=== PATIENT | male | born 1975 | race Caucasian/White ===

== ENCOUNTER 2017-08-21 17:04 | Emergency (ER) | payer OTHER ==
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
[2017-08-21] MEDS ORDERED: METHOCARBAMOL 500 MG TABLET PO STA (17:53)
[2017-08-21] MEDS ORDERED: IBUPROFEN 600 MG TABLET PO STA (17:53)
[2017-08-21] MEDS ORDERED: traMADol 50 MG TABLET PO STA (17:53)
--- NOTE | 2017-08-21 18:35 | CT Preliminary Report ---
Exam: CT LUMBAR SPINE W/O IMPRESSION: Minimal broad-based disk bulges at L4-L5 and L5-S1, without significant spinal or foramin al narrowing. [facility] SITE ID: [id number]
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
[2017-08-21 19:30] VITALS: BP 130/94
== END 2017-08-21 19:27 | disposition home or self-care (01) ==
LOC: ED 17:04
DX: S39.012A Strain of muscle, fascia and tendon of lower back, initial encounter (principal); M54.16 Radiculopathy, lumbar region; V49.59XA Passenger injured in collision with other motor vehicles in traffic accident, initial encounter; Y92.488 Other paved roadways as the place of occurrence of the external cause
CPT/HCPCS: 72131; 99283; A9270